=== PATIENT | female | born 1945 | race Caucasian/White ===

== ENCOUNTER 2024-07-14 11:30 | Inpatient (IN) | payer MEDICARE, BC ==
[~2024-07-14] VITALS: Ht 160 cm; Wt 49.1 kg
[~2024-07-14 11:30] MED LIST: CYANOCOBAL1000 MCG/1 IM; EVISTA 60MG60 MG/TAB PO; MVI; VASOTEC10 MG PO; VITAMIN D
[2024-07-14] MEDS ORDERED: Morphine 4 MG/ML VIAL IV ONE (13:30)
[2024-07-14] MEDS ORDERED: Ondansetron 4 MG/2 ML VIAL IV ONE (13:30)
[2024-07-14] MEDS ORDERED: LR 1,000 ML IV ONE (13:30)
[2024-07-14 14:09] LABS: BASO % 0.2 % (0.0-2.0); EOS % 0.2 % (0.0-4.0); GRAN # 10.1 K/mm3 (1.4-6.5); GRAN % 82.4 % (42.2-75.2); HEMATOCRIT 38.2 % (37.0-47.0); HEMOGLOBIN 12.5 g/dl (12.5-16.0); LYMPH # 1.3 K/mm3 (1.2-3.4); LYMPH % 10.6 % (20.0-51.0); MEAN CELL VOLUME 101 fl (80.0-100.0); MEAN CORPUSCULAR HEMOGLOBIN 33 pg (27-31); MEAN CORPUSCULAR HGB CONC 33 g/dl (33.0-37.0); MEAN PLATELET VOLUME 9.7 fl (7.4-10.4); MONO # 0.8 K/mm3 (0.1-0.6); MONO % 6.2 % (1.7-9.3); PLATELET COUNT 157 K/mm3 (130-400); REDCELL DISTRIBUTION WIDTH-CV 12.3 % (11.5-14.5)
[2024-07-14 14:29] LABS: ALBUMIN 3.9 g/dL (3.4-4.8); BILIRUBIN,TOTAL 0.4 mg/dL (0.2-1.2); CALCIUM 9.8 mg/dL (8.4-10.2); CREATININE, serum 0.58 mg/dL (0.57-1.11); POTASSIUM 3.8 mEq/L (3.5-4.5); TOTAL PROTEIN 6.3 g/dl (6.2-8.1)
[2024-07-14] MEDS ORDERED: MELATONIN1 MG PO (15:37)
[2024-07-14] MEDS ORDERED: ZOLOFT 25MG25 MG PO (15:37)
[2024-07-14] MEDS ORDERED: TYLENOL 500MG500 MG PO (15:38)
[2024-07-14] MEDS ORDERED: ULTRAM 50MG TAB50 MG PO (15:39)
[2024-07-14 16:36] VITALS: BP 126/52; PULSE 57; TEMP 98.6
--- NOTE | 2024-07-14 16:39 | NUR ---
Pt arrived from ED. Transferred Pt to bed. Oriented Pt to room. Initial assessment complete. Med Rec complete. Bed alarm on. King in place. Keith corral and SCD on Left lower leg. Dr Landa notified of Pt's arrival to floor.
[2024-07-14] MEDS ORDERED: Morphine 4 MG/ML VIAL IV PRN (17:00)
[2024-07-14] MEDS ORDERED: oxyCODONE 5 MG TAB PO PRN (17:00)
[2024-07-14 17:26] VITALS: BP_SYST 126
[2024-07-14] MEDS ORDERED: Acetaminophen 325 MG TAB PO PRN (19:00)
[2024-07-14] MEDS ORDERED: NS 1,000 ML IV SCH (19:00)
[2024-07-14] MEDS ORDERED: Ondansetron 4 MG/2 ML VIAL IV PRN (19:00)
[2024-07-14 20:00] VITALS: BP 109/61; PULSE 66; TEMP 98.5
[2024-07-14 20:45] VITALS: BP_SYST 109; BP_SYST 115
[2024-07-14] MEDS ORDERED: Sennosides/Docusate 8.6-50 MG TAB PO SCH (21:00)
[2024-07-15] VITALS (12 sets, daily range): BP systolic 105–131; BP diastolic 65–73; PULSE 67–85; TEMP 97.3–100
[2024-07-15 06:40] LABS: BASO % 0.4 % (0.0-2.0); EOS # 0.1 K/mm3 (0.0-0.7); EOS % 1.4 % (0.0-4.0); GRAN # 4.8 K/mm3 (1.4-6.5); GRAN % 67.7 % (42.2-75.2); HEMOGLOBIN 11.2 g/dl (12.5-16.0); LYMPH # 1.4 K/mm3 (1.2-3.4); LYMPH % 19.4 % (20.0-51.0); MEAN CELL VOLUME 101 fl (80.0-100.0); MEAN CORPUSCULAR HEMOGLOBIN 33 pg (27-31); MEAN CORPUSCULAR HGB CONC 33 g/dl (33.0-37.0); MEAN PLATELET VOLUME 9.8 fl (7.4-10.4); MONO # 0.8 K/mm3 (0.1-0.6); MONO % 10.7 % (1.7-9.3); PLATELET COUNT 152 K/mm3 (130-400); REDCELL DISTRIBUTION WIDTH-CV 12.5 % (11.5-14.5)
[2024-07-15 06:49] LABS: HEMATOCRIT 34.4 % (37.0-47.0)
[2024-07-15 07:00] LABS: CALCIUM 8.5 mg/dL (8.4-10.2); CREATININE, serum 0.56 mg/dL (0.57-1.11); POTASSIUM 3.9 mEq/L (3.5-4.5)
--- NOTE | 2024-07-15 07:00 | NUR ---
Pt sitting up in bed.Pt requesting something for dry mucous membranes. Provided moist sponge. Denies further needs. Call light in reach and bed alarm on.
[2024-07-15 07:20] LABS: URINE APPEARANCE CLEAR (CLEAR/HAZY); URINE BLOOD 3+ (NEGATIVE); URINE COLOR YELLOW (YELLOW); URINE GLUCOSE NEGATIVE (NEGATIVE); URINE KETONE NEGATIVE (NEGATIVE); URINE NITRATE NEGATIVE (NEGATIVE); URINE PROTEIN(semi-quant) NEGATIVE (NEGATIVE)
[2024-07-15 07:23] LABS: THYROID STIMULATING HORMONE 0.947 uIU/mL (0.350-4.940)
--- NOTE | 2024-07-15 08:02 | NUR ---
Pt sitting up in bed. A&Ox4. VSS. S1S2. Clear lungs on RA. ABD round, soft, non-tender with audible bowel sounds. Palpable pulses in all extremities. Pt reports pain 5/10 in R hip/thigh. Denies need for pain meds at this time. Applied ice pack to R hip. King catheter in place with clear yellow urine. IV in R AC patent with NS at 75 cc/hr. Teds and SCDs on L leg. No further needs. Call light in reach and bed alarm on.
[2024-07-15 08:50] LABS: COLLECTION METHOD CLEAN CATCH
[2024-07-15] MEDS ORDERED: Cyanocobalamin (Vit B-12) 1,000 MCG TAB PO SCH ×2 (09:00)
[2024-07-15] MEDS ORDERED: Sertraline 25 MG TAB PO SCH (09:00)
--- NOTE | 2024-07-15 11:47 | NUR ---
Pt requested to remain on R hip. Will come back to turn Pt at later time.
--- NOTE | 2024-07-15 17:18 | NUR ---
Pt's daughter expressed concern with Pt's dementia. Per Pt's daughter, over the past year Pt has had difficulty with recall. Per daughter, Pt is cognizant and able to answer orientation questions, but can have difficulty finding words during conversation. Daughter concerned about anesthesia and dementia. Explained my experience caring for surgical Pt's with dementia. Pt's daughter stated she was more at ease after conversation.
[2024-07-16] VITALS (16 sets, daily range): BP systolic 110–151; BP diastolic 61–93; PULSE 68–96; TEMP 98.1–99
--- NOTE | 2024-07-16 06:11 | NUR ---
PT HAD SOME CONFUSION TONIGHT, PULLED HER IV OUT, DID NOT REMEMBER WHERE SHE WAS AND WHY, ABLE TO SLEEP AFTER PAIN MEDS GIVEN X1. NPO SINCE MIDNIGHT, IVF INFUSING PER NEW PIV IN RAC. HARTMAN DRAINING CLEAR, YELLOW URINE, TURNING Q2 HRS.
[2024-07-16 06:39] LABS: BASO % 0.3 % (0.0-2.0); EOS % 0.2 % (0.0-4.0); GRAN # 6.7 K/mm3 (1.4-6.5); HEMOGLOBIN 11.9 g/dl (12.5-16.0); LYMPH # 0.9 K/mm3 (1.2-3.4); MEAN CELL VOLUME 100 fl (80.0-100.0); MEAN CORPUSCULAR HEMOGLOBIN 33 pg (27-31); MEAN CORPUSCULAR HGB CONC 33 g/dl (33.0-37.0); MEAN PLATELET VOLUME 10.2 fl (7.4-10.4); MONO % 11.3 % (1.7-9.3); PLATELET COUNT 121 K/mm3 (130-400); RED BLOOD COUNT 3.59 M/mm3 (4.10-5.30); REDCELL DISTRIBUTION WIDTH-CV 12.2 % (11.5-14.5)
[2024-07-16 06:45] LABS: HEMATOCRIT 35.8 % (37.0-47.0)
[2024-07-16 06:59] LABS: CALCIUM 8.5 mg/dL (8.4-10.2); CREATININE, serum 0.53 mg/dL (0.57-1.11); POTASSIUM 3.7 mEq/L (3.5-4.5)
[2024-07-16] MEDS ORDERED: LR 1,000 ML IV SCH (08:30)
[2024-07-16] MEDS ORDERED: FOSAMAX 70MG TA70 MG PO (09:30)
[2024-07-16] MEDS ORDERED: VASOTEC 10M10 MG/TAB PO (09:30)
--- NOTE | 2024-07-16 10:00 | NUR ---
SHIFT ASSESSMENT COMPLETE. VSS. PATIENT AWAKE IN BED W/ DAUGHTER AT BEDSIDE. PATIENT NPO STATUS FOR SURGERY TODAY AND CURRENTLY BEDREST W/ Q2 TURNS CURRENTLY ON RIGHT SIDE. MORNING PO MEDS HELD DUE TO NPO STATUS. PATIENT HAS NO NEEDS AT THIS TIME. FALL PRECAUTIONS IN PLACE AND CALL LIGHT IN REACH.
--- NOTE | 2024-07-16 10:00 | NUR ---
social worker masters met with pt and daughter, Deisy [phone] to discuss discharge planning. She reports to live with her , Chaparro [phone] in [place]. She sees Dr. Sarabia for PCP needs and obtains medications from [facility] with no difficulties. She is typically independent with ADLS and uses a rolator for DME. She has a DPOA-HC on file listing her daughter as primary, pt verbalized understanding. Pt reports to have BCBS insurance and was not sure on if she had Medicare. She then told SW she believes to have Medicare Part A only. Daughter attempted to locate card and could not find it. SW provided Medicare.gov list of SNF's and IPR for review. SW discussed SNF, IPR, and Swing Bed options. Pt was urged to review this with her family and SW will follow. Daughter pulled SW outside and reports she has talked with pt previously and she was agreeable to [facility]. Daughter does not think pt could tolerate IPR. She reports pt might not be good for Swing Bed as she needs custodial placement and would like to start there since she discussed this previously with pt. ROBERT advised she will send this and asked them to think of 1-2 more options. SW faxed referral to [facility]. ROBERT informed finance team to look and see if pt has Medicare. Discharge Plan: SNF, Surgery today
[2024-07-16] MEDS ORDERED: Midazolam 2 MG/2 ML VIAL ONE (10:47)
[2024-07-16] MEDS ORDERED: fentaNYL 50 MCG/ML 2 ML VIAL ONE (10:47)
[2024-07-16] MEDS ORDERED: Lidocaine PF 2% (20 MG/ML) 5 ML VIAL ONE (10:47)
[2024-07-16] MEDS ORDERED: oxyCODONE 5 MG TAB PO PRN (15:45)
[2024-07-16] MEDS ORDERED: Naloxone 0.4 MG/ML VIAL IV PRN (15:45)
[2024-07-16] MEDS ORDERED: D5LR 1,000 ML IV SCH (15:45)
[2024-07-16] MEDS ORDERED: HYDROmorphone 0.5 MG/0.5 ML SYRINGE IV PRN (15:45)
[2024-07-16] MEDS ORDERED: Topical Skin Adhesive 1 EACH (1 ML) TOP ONE (15:50)
--- NOTE | 2024-07-16 16:43 | NUR ---
PATEINT ARRIVED TO FLOOR FROM PACU AT 1640. REPORT RECEIVED FROM [facility]. VSS. PATIENT WAS SHIVERING DOWN IN PAC BEAR HUGGER APPLIED AND BROUGHT UP WTH PATIENT. PATIENT REPOTS NO YAO AT THS TIME, SPINAL BLOCK STILL IN EFFECT. PATIENT HAS NO REQUEST AT THS TIME, FAMILY AT BEDSIDE. CALL LIGHT IN REACH
[2024-07-16] MEDS ORDERED: ceFAZolin 2 G in Water For Injection,Sterile 20 ML IV SCH (19:44)
[2024-07-16] MEDS ORDERED: ceFAZolin 1 G in Water For Injection,Sterile 10 ML IV SCH (20:00)
[2024-07-16] MEDS ORDERED: Celecoxib 200 MG CAP PO SCH (21:00)
[2024-07-16] MEDS ORDERED: Cetirizine 10 MG TAB PO SCH (21:00)
[2024-07-16] MEDS ORDERED: Fluticasone Nasal 50 MCG/Spray 16 GM BOTTLE NS SCH (21:00)
--- NOTE | 2024-07-16 21:43 | NUR ---
PT RESTING IN BED, ALERT AND ORIENTEDX4 BUT STRUGGLED WITH BIRTHDAY AT FIRST. . RATES PAIN 5/10 IN THE RIGHT HIP. ASSESSED PT. PT UNABLE TO TAPEMAN LEGS BUT HAS FEELING BACK. AQUACELL DRESSING INTACT ON THE RIGHT HIP. PT TOLERATED A FEW BITES OF FOOD. HARTMAN IS DRAINING. NO OTHER COMPLAINTS AT THIS TIME. CALL LIGHT WITHIN REACH.
[2024-07-17] VITALS (12 sets, daily range): BP systolic 90–127; BP diastolic 43–63; PULSE 73–93; TEMP 97.9–99.8
--- NOTE | 2024-07-17 02:05 | NUR ---
pt awake and resting in bed. vss. pt denies pain. aqaucell dressing to right hip is cdi. mills to dd w dark hadley urine output. teds and scds to ble. INT to NICOLAS patent. pt denies needs at this time. call light in reach. fall precautions in place.
[2024-07-17 06:22] LABS: BASO % 0.2 % (0.0-2.0); EOS % 0.5 % (0.0-4.0); GRAN # 7.2 K/mm3 (1.4-6.5); GRAN % 82.1 % (42.2-75.2); HEMOGLOBIN 10.9 g/dl (12.5-16.0); LYMPH # 0.7 K/mm3 (1.2-3.4); LYMPH % 7.6 % (20.0-51.0); MEAN CELL VOLUME 101 fl (80.0-100.0); MEAN CORPUSCULAR HEMOGLOBIN 33 pg (27-31); MEAN CORPUSCULAR HGB CONC 33 g/dl (33.0-37.0); MEAN PLATELET VOLUME 9.9 fl (7.4-10.4); MONO # 0.8 K/mm3 (0.1-0.6); MONO % 9.3 % (1.7-9.3); PLATELET COUNT 124 K/mm3 (130-400); RED BLOOD COUNT 3.33 M/mm3 (4.10-5.30); REDCELL DISTRIBUTION WIDTH-CV 12.3 % (11.5-14.5)
[2024-07-17 06:25] LABS: HEMATOCRIT 33.5 % (37.0-47.0)
[2024-07-17 06:27] LABS: CALCIUM 8.6 mg/dL (8.4-10.2); CREATININE, serum 0.53 mg/dL (0.57-1.11); POTASSIUM 3.7 mEq/L (3.5-4.5)
[2024-07-17] MEDS ORDERED: Calcium Carbonate 500 MG TAB PO SCH (09:00)
[2024-07-17] MEDS ORDERED: Ascorbic Acid 500 MG TAB PO SCH (09:00)
--- NOTE | 2024-07-17 10:20 | NUR ---
SHIFT ASSESSMENT COMPLETE. VSS. PATIENT RESTING IN BED FINIHED UP BREAKFAST. ALL MORNING MEDS GIVEN ORDERED. PAIN REPORTED 5/10 PAIN MEDS GIVEN ORDERD PRIOR TO PT TODAY. PATIENT HAS NO REQUEST AT THIS TIME, CALL LIGHT IN REACH AND CHAIR ALARM ON.
--- NOTE | 2024-07-17 11:11 | NUR ---
workers compensation claims assistant was informed [facility] can accept her. ROBERT called pt's , Chaparro to provide update and this is what daughter and patient discussed yesterday. He verbalized understanding and has no questions. ROBERT spoke with Dr. Deidra Lyons who reports pt could discharge in the next day or so. PT/OT pending ROBERT faxed updates to [facility] and informed Director Taylor of tenative discharge for tomorrow. Discharge Plan: [facility]
--- NOTE | 2024-07-17 11:39 | NUR ---
HARTMAN CATHER REMOVED, 9CC REMOVED FROM CATH BALLOON AND 300 OF URINE. PATIENT TOLERATED WELL
[2024-07-17] MEDS ORDERED: Multivitamin TAB PO SCH (12:00)
--- NOTE | 2024-07-17 17:40 | NUR ---
BLADDER SCANNED PATIENT 15ML. NO INTERVENTION NEEDED AT THIS TIME.
--- NOTE | 2024-07-17 19:40 | NUR ---
Patient assessed at this time, see shift assessment, reports minimal pain, able to tell this nure her date of and the reason why she's admitted, SBP 90's, denies dizziness, still with IV infusing well on right AC, denies further needs, call light and personal items within reach, will continue to monitor.
[2024-07-18 01:11] VITALS: BP_SYST 97
--- NOTE | 2024-07-18 01:38 | NUR ---
Bladder scanned patient at this time and resulted to 198ml, patient doesn't feel like she need to void at this time, will continue to monitor.
--- NOTE | 2024-07-18 03:13 | NUR ---
Patient up to the BSC at this time with 2 assist, voided 100ml hadley urine.
[2024-07-18 03:34] VITALS: BP 93/55; PULSE 77; TEMP 97.3
[2024-07-18 05:00] VITALS: BP_SYST 93
[2024-07-18 06:57] LABS: BASO % 0.2 % (0.0-2.0); EOS # 0.1 K/mm3 (0.0-0.7); EOS % 0.6 % (0.0-4.0); GRAN # 7.5 K/mm3 (1.4-6.5); GRAN % 78.5 % (42.2-75.2); LYMPH # 0.8 K/mm3 (1.2-3.4); LYMPH % 8.5 % (20.0-51.0); MEAN CELL VOLUME 102 fl (80.0-100.0); MEAN CORPUSCULAR HGB CONC 33 g/dl (33.0-37.0); MEAN PLATELET VOLUME 10.4 fl (7.4-10.4); MONO # 1.1 K/mm3 (0.1-0.6); MONO % 11.7 % (1.7-9.3); PLATELET COUNT 145 K/mm3 (130-400); RED BLOOD COUNT 2.75 M/mm3 (4.10-5.30); REDCELL DISTRIBUTION WIDTH-CV 12.3 % (11.5-14.5)
[2024-07-18 06:58] LABS: HEMATOCRIT 27.9 % (37.0-47.0); HEMOGLOBIN 9.1 g/dl (12.5-16.0); MEAN CORPUSCULAR HEMOGLOBIN 33 pg (27-31)
[2024-07-18 07:06] LABS: CREATININE, serum 0.62 mg/dL (0.57-1.11); POTASSIUM 4.3 mEq/L (3.5-4.5)
[2024-07-18 07:59] VITALS: BP 95/58; PULSE 81; TEMP 97.3
[2024-07-18] MEDS ORDERED: ASPIRIN E.C. 8181 MG PO (08:08)
[2024-07-18] MEDS ORDERED: ZYRTEC 10MG10 MG PO (08:08)
[2024-07-18] MEDS ORDERED: DUO-KAPS1 CAP PO (08:10)
[2024-07-18] MEDS ORDERED: VITAMIN C500 MG PO (08:10)
[2024-07-18] MEDS ORDERED: PROTONIX 40MG T40 MG PO (08:10)
--- NOTE | 2024-07-18 08:10 | NUR ---
Pt. sitting up in bed. Pt. is A&OX3, assessment complete. INT to rt. ac patent. Pt. denies need for pain meds at this time. Pt. denies further needs, call light within reach.
[2024-07-18] MEDS ORDERED: CLARISPRAY9.9 ML NS (08:11)
[2024-07-18] MEDS ORDERED: CALCIUM 600600 MG PO (08:12)
[2024-07-18] MEDS ORDERED: SENEXON-S 50-81 EACH PO (08:12)
[2024-07-18] MEDS ORDERED: ROXICODONE 55 MG/TAB PO (08:14)
[2024-07-18 09:00] VITALS: BP_SYST 111
--- NOTE | 2024-07-18 10:04 | NUR ---
ROBERT informed that patient is stable for discharge to [facility] today. DC orders and updated clinicals faxed to [facility]. ROBERT spoke with Taylor who informed that patient will be picked up at 1300. UC notified of transport time. Patient and family informed of transport time. ROBERT met with patient to review Medicare IM form. Patient agreeable to discharge and signed form. Original on chart and copy to patient. Discharge plan: [facility]
[2024-07-18 13:11] VITALS: BP 111/54; PULSE 68; TEMP 97.4
--- NOTE | 2024-07-18 13:15 | NUR ---
Pt. ready for discharge. INT to rt. ac discontinued. Discharge packet given to the head of transport logistics. Report called to the nurse Griselda at [facility].
== END 2024-07-18 13:15 | DRG 522 ==
LOC: COL.ER 11:30 → SURG 15:09
PROVIDERS: Emergency Medicine; Orthopaedic Surgery Sports Medicine; Physician Assistant; ADMIT Hospitalist
PROC: 0SRR0J9 Replacement of Right Hip Joint, Femoral Surface with Synthetic Substitute, Cemented, Open Approach (ICD-10-PCS; principal; 2024-07-16 12:30)
DX: S72.001A Fracture of unspecified part of neck of right femur, initial encounter for closed fracture (principal); G47.00 Insomnia, unspecified; D72.829 Elevated white blood cell count, unspecified; F32.A Depression, unspecified; D69.6 Thrombocytopenia, unspecified; D53.9 Nutritional anemia, unspecified; I10 Essential (primary) hypertension; W01.0XXA Fall on same level from slipping, tripping and stumbling without subsequent striking against object, initial encounter; T78.40XA Allergy, unspecified, initial encounter; Y93.K1 Activity, walking an animal; Y92.098 Other place in other non-institutional residence as the place of occurrence of the external cause; Z90.49 Acquired absence of other specified parts of digestive tract; Z98.51 Tubal ligation status; Z87.442 Personal history of urinary calculi; Z79.899 Other long term (current) drug therapy; Z23 Encounter for immunization
CPT/HCPCS: A4314; A6197; A9284; C1713; C1776; J0665; J0690; J2250; J2270; J2405; J2704; J3010; J7030; J7120